=== PATIENT | male | born 1955 | race Caucasian/White ===

== ENCOUNTER 2018-06-01 17:09 | Observation (INO) | payer OTHER ==
[2018-06-01] MEDS ORDERED: LR 1,000 ML IV ONE (17:17)
[2018-06-01] MEDS ORDERED: BACITRACIN ZINC 14.2 GM OINTTUBE TP ONE (18:04)
[2018-06-01] MEDS ORDERED: EPINEPHrine 1 MG/ML INJ ONE (18:05)
[2018-06-01] MEDS ORDERED: LIDOCAINE 1% 300 MG/30 ML SDV ONE (18:05)
--- NOTE | 2018-06-01 18:07 | PDANEPAE ---
ANE History of Present Illness nasal carcinoma/flap reconstruction ANE Past Medical History - Cardiovascular History Hx Hypertension: No Hx Arrhythmias: No Hx Chest Pain: No Hx Coronary Artery / Peripheral Vascular Disease: No Hx CHF / Valvular Disease: No Hx Palpitations: No - Pulmonary History Hx COPD: No Hx Asthma/Reactive Airway Disease: No Hx Recent Upper Respiratory Infection: No Hx Oxygen in Use at Home: No Hx Sleep Apnea: No - Neurologic History Hx Cerebrovascular Accident: No Hx Seizures: No Hx Dementia: No Neurologic History Comment: "I get hot & almost pass out." - Endocrine History Hx Diabetes: No - Renal History Hx Renal Disorders: No - Liver History Hx Hepatic Disorders: No - Neurological & Psychiatric Hx Hx Neurological and Psychiatric Disorders: No - Cancer History Hx Cancer: Yes Cancer History Comment: Basal cell x 3 on nose - Congenital Disorder History Hx Congenital Disorders: No - GI History Hx Gastrointestinal Disorders: No Gastrointestinal History Comment: Barretts esophagus - Other Health History Other Health History: Phx Anemia - Chronic Pain History Chronic Pain: No - Surgical History Prior Surgeries: left knee scope. 2 nose sx. plastic surgery. EGD/Colon. Catract bilateral ANE Review of Systems Review of systems is: negative Review of Systems: - Exercise capacity METS (RN): 4 METS ANE Patient History - Home Medications Home medications: home medication list seen and reviewed - NPO status NPO Since - Liquids (Date): 06/01/18 NPO Since - Liquids (Time): 12:00 NPO Since - Solids (Date): 06/01/18 NPO Since - Solids (Time): 09:00 - Anes Hx Anes Hx: no prior problems - Smoking Hx Smoking Status: Former smoker - Family Anes Hx Family Hx Anesthesia Complications: none. ANE Labs/Vital Signs - Vital Signs Blood Pressure: 120/66 Heart Rate: 60 Respiratory Rate: 18 O2 Sat (%): 97 Height: 177.8 cm Weight: 70.307 kg ANE Physical Exam - Airway Neck exam: FROM Mallampati Score: Class 1 Mouth exam: dentures - Pulmonary Pulmonary: no respiratory distress - Cardiovascular Cardiovascular: regular rate and rhythym - ASA Status ASA Status: II ANE Anesthesia Plan Anesthesia Plan: general endotracheal anesthesia
[2018-06-01] MEDS ORDERED: fentaNYL 100 MCG/2 ML INJ ONE ×3 (18:09→22:02)
[2018-06-01] MEDS ORDERED: PROPOFOL 200 MG/20 ML VIAL ONE ×2 (18:10→22:56)
[2018-06-01] MEDS ORDERED: ROCURONIUM 50 MG/5 ML VIAL ONE ×2 (18:12→19:15)
[2018-06-01] MEDS ORDERED: LIDOCAINE 2% 5 ML SDV ONE (18:13)
[2018-06-01] MEDS ORDERED: MIDAZOLAM 2 MG/2 ML VIAL IVP ONE (18:17)
[2018-06-01] MEDS ORDERED: CEFAZOLIN 2 GM/DEXTROSE/100 ML BAG IV ONE (18:25)
[2018-06-01] MEDS ORDERED: SUCCINYLCHOLINE CHLORIDE 200 MG/10 ML SYR IVP ONE (18:43)
[2018-06-01] MEDS ORDERED: DEXAMETHASONE 4 MG/ML VIAL ONE ×2 (18:51)
[2018-06-01] MEDS ORDERED: PHENYLEPHRINE HCL 100 MCG/ML SYR ONE (19:01)
--- NOTE | 2018-06-01 19:02 | POSTANESTH ---
Post Anesthetic Evaluation Cardiovascular Status: Normal, Stable Respiratory Status: Normal, Stable Level of Consciousness/Mental Status: Can Participate in Eval, Mildly Sleepy, Arousable Pain Control: Adequate, Prn Tx Ordered Nausea/Vomiting Control: Adequate, Prn Tx Ordered Complications Possibly Related to Anesthesia: None Noted
[2018-06-01] MEDS ORDERED: HYDROmorphONE/DILAUDID 2 MG/ML INJ ONE (19:22)
--- NOTE | 2018-06-01 19:44 | GHP ---
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 He has a history of basal cell cancer on the end of his nose that underwent resection 2 times prior. They on Wednesday attempted nose surgery, and at that time they were not able to get clear margins, and so he presents to us today for further nasal carcinoma excision and recons truction. ALLERGIES: No known drug allergies. PAST MEDICAL HISTORY: Significant for basal cell carcinoma, left knee scope, and [place]. FAMILY HISTORY: Noncontributory. PHYSICAL EXAMINATION: GENERAL: The patient is alert and orientated, in no acute distress. EARS: C lear. NOSE: Patient with a significant nasal defect of his nose with exposed cartilage. OROPHARYNX : Clear. NECK: Supple. HEART: Regular rate and rhythm. LUNGS: Clear to auscultation. ASSESSMENT/PLAN: Patient with a basal cell carcinoma, who underwent incomplete Mohs surgery 2 days a go. Our plan is for further excision of the carcinoma, and then we will proceed with a forehead flap with partial rhinectomy. Risks of surgery were discussed with the patient including bleeding, infec tion, failure of the flap, facial nerve paralysis, and paresthesias. The patient signed consent. /[id number]/MODL
[2018-06-01] MEDS ORDERED: NALOXONE HCL 0.4 MG/ML INJ IVP PRN (22:19)
[2018-06-01] MEDS ORDERED: LR 500 ML IV PRN (22:19)
[2018-06-01] MEDS ORDERED: oxyCODONE IR 5 MG TAB PO PRN (22:19)
[2018-06-01] MEDS ORDERED: ONDANSETRON 4 MG/2 ML VIAL IVP PRN (22:19)
[2018-06-01] MEDS ORDERED: ACETAMINOPHEN 500 MG TAB PO PRN (22:19)
[2018-06-01] MEDS ORDERED: ALBUTEROL 3 ML DEYVIAL IH PRN (22:19)
[2018-06-01] MEDS ORDERED: PROMETHAZINE HCL 25 MG/ML INJ IVP PRN (22:19)
[2018-06-01] MEDS ORDERED: HYDROmorphONE/DILAUDID 2 MG/ML INJ IVP PRN (22:19)
[2018-06-01] MEDS ORDERED: fentaNYL 100 MCG/2 ML INJ IVP PRN (22:19)
[2018-06-01] MEDS ORDERED: METOCLOPRAMIDE 10 MG/2 ML VIAL IVP PRN (22:19)
[2018-06-01] MEDS ORDERED: HYDROCODONE/APAP 5/325 TAB PO PRN (22:19)
[2018-06-01] MEDS ORDERED: SUGAMMADEX SODIUM 200 MG/2 ML VIAL IVP ONE (22:23)
[2018-06-02] MEDS ORDERED: ONDANSETRON DISINTEGRATING 4 MG TAB PO PRN (00:05)
[2018-06-02] MEDS ORDERED: NS 2,000 ML IV SCH (00:30)
[2018-06-02] MEDS: OXYCODONE/APAP 5/325 TAB PO PRN ×5 (00:33→20:27)
--- NOTE | 2018-06-02 10:29 | ASMTCMCOM ---
CM Note CM Note Notes: Pt is a 62 y/o man admitted for malignant neoplasm of skin of nose. Pt will most likely d/c independent when medically stable. No therapies ordered at this time. CM available for changes. Plan: Independent Date Signed: 06/02/2018 10:28 AM Electronically Signed By:IMANI Sanchez
--- NOTE | 2018-06-02 10:40 | SOAPPROG ---
SOAP Progress Note Assessment/Plan: Assessment: Patient doing well. Incision cleaned with peroxide. We will keep him another night. Continue IV abx. Will add saline nsasl spray BID. Continue with ointment. Plan to round again this afternoon and d/c tomorrow. Patient was evaluated by Dr. Clarke Plan: 06/02/18 10:37 Objective: Vital Signs Temp Pulse Resp BP Pulse Ox 37.1 C 74 16 103/60 97 06/02/18 03:27 06/02/18 03:27 06/02/18 03:27 06/02/18 03:27 06/02/18 03:27 06/01/18 06/02/18 06/03/18 05:59 05:59 05:59 Intake Total 1950 Output Total 100 Balance 1850 ICD10 Worksheet Patient Problems: Problems Problem Status Onset Basal cell carcinoma of nose Acute - ICD10 Problem Qualifiers (1) Basal cell carcinoma of nose
[2018-06-02] MEDS ORDERED: D5W 1/2 NS 1,000 ML IV SCH (10:45)
[2018-06-02] MEDS: BACITRACIN OINTMENT 1 PACKET TP SCH ×3 (11:22→20:29)
[2018-06-02] MEDS: SODIUM CL NASAL 45 ML BTL EACHNARE SCH ×2 (11:38→20:28)
--- NOTE | 2018-06-02 14:30 | SOAPPROG ---
SOAP Progress Note Assessment/Plan: Assessment: Patient doing well. Incision cleaned with peroxide. Continue with ointment, saline spray Plan to d/c tomorrow. Plan: 06/02/18 10:37 06/02/18 14:30 Objective: Vital Signs Temp Pulse Resp BP Pulse Ox 37.1 C 73 18 108/59 L 96 06/02/18 12:00 06/02/18 12:00 06/02/18 12:00 06/02/18 12:00 06/02/18 12:00 06/01/18 06/02/18 06/03/18 05:59 05:59 05:59 Intake Total 1950 Output Total 100 Balance 1850 ICD10 Worksheet Patient Problems: Problems Problem Status Onset Basal cell carcinoma of nose Acute - ICD10 Problem Qualifiers (1) Basal cell carcinoma of nose
[2018-06-03] MEDS: OXYCODONE/APAP 5/325 TAB PO PRN ×2 (05:21→09:28)
[2018-06-03 08:35] VITALS: BP 125/59
[2018-06-03] MEDS: BACITRACIN OINTMENT 1 PACKET TP SCH (08:58)
[2018-06-03] MEDS: SODIUM CL NASAL 45 ML BTL EACHNARE SCH (09:00)
--- NOTE | 2018-06-03 11:12 | PDDCSUM ---
Discharge Summary Discharge Summary: 62 year old male with basal cell carcinoma of nose s/p reconstruction 06/01/[address] Clarke. He is doing well. Incision clean/dry/intact. AFVSS Discussed post op care. He is to apply bacitracin TID to incision and warm compresses TID. Follow up in clinic 06/08/18 Patient was evaluated by Dr. Clarke.
--- NOTE | 2018-06-03 12:12 | GOP ---
DATE OF OPERATION: 06/01/2018 SURGEON: Shaun Clarke MD LODGE OFFICER: Rebecca Gamez PA-C. ANESTHESIA: General. PREOPERATIVE DIAGNOSIS: Nasal carcinoma. POSTOPERATIVE DIAGNOSIS: Nasal carcinoma. PROCEDURE PERFORMED: Partial rhinectomy and multiple flap reconstructions including cartilage grafti ng for a rhinectomy defect. FINDINGS: INDICATIONS: Nasal carcinoma. DESCRIPTION OF PROCEDURE: The patient is a 62-year-old male brought to the operating room where gene ral anesthesia is induced and endotracheal intubation is performed. The nose and face are cleaned st erilely and prepped and draped in a sterile fashion. Procedure is begun by excising areas of cancer demarcation along the mucosal surface internally extending toward the inferior turbinate on the right lateral nasal sidewall underneath the lateral alar region. This area is excised primarily and then 2 margins taken from this area for frozen section analysis, which the margins come back negative for carcinoma on frozen section analysis. He has also cutaneous involvement noted at the right lateral s idewall, and this area is cut back for approximately 5 mm and then new margins taken in 2 locations a nona this area, which are sent for frozen section analysis, for which both come back negative for any evidence of carcinoma. At this point, the patient has flaps planned, and we perform a mucosal advan cement flap internally, bringing mucosa off the septum and floor of the nose on the right side to hel p cover the mucosal defect along the vestibule and lateral wall and crural margin. Once this flap is raised, it is rotated into place. A Dorrington incision is made in the patient's septum, and a septopl asty-type procedure approach performed to raise submucoperichondrial flaps to help harvest and use se ptal cartilage as alar grafting. An appropriate amount of septal cartilage is taken to form alar cart ilage graft replacement. The [place] incision is then closed primarily with 4-0 chromic suture in a quilting stitch fashion. The patient then has the cartilage fashioned into the alar graft and sewn i n place with 4-0 Prolene suture in multiple interrupted [id number] suture fashion. The vest ibular lining is then brought up underneath the cartilage and tacked to the cartilage using a 4-0 Mon ocryl suture in a couple spots. The patient then has multiple cutaneous flaps performed starting wit h a large dorsal nasal flap rotation, which will come off the left side of his cheek and face and mid line forehead, which will rotate to cover the bulk of the nasal defect pedicle on the right nasal andi ewall. This flap is elevated in a deep subcutaneous and submuscular plane and rotated into place to get coverage. The defect from the previously-done Mohs procedure extended from the inferior aspect o f the columella all the way up to the bony cartilaginous junction of the nose dorsally with complete degloving of the right side of his nose and moderate degloving of the left side of his nose with some of the alar cutaneous margin retained on the left side with extension of the excision all the way do wn to the alar base on the right side. The flap rotates into place to cover the left middle and a po rtion of the right cutaneous defect and is sewn in place with 4-0 Monocryl and 5-0 Prolene sutures in cluding suturing to the neovestibular lining on the right as well as to the vestibular lining nostril margin on the left. The patient then has a nasolabial island advancement flap performed from the al ar base superiorly with a V-to-Y closure performed to help move the cutaneous flap over the still exp osed alar margin and lateral alar base defect on the right side. This flap is advanced and rotated i nto place and sewn in place with 4-0 Prolene and 4-0 Monocryl suture as well to the vestibular lining . The patient then had his nose cleaned, and a defect along the lateral nasal sidewall still noted, and a small triangular piece of dorsal glabellar skin, which would be extraneous because of the way t he flap rotated, was then excised from the flap and sewn into this defect as a free skin graft on the lateral left nasal sidewall using a 4-0 Prolene suture. The patient then has the wound cleaned agai n, and once all of the incisions and donor sites are closed, the patient has the wound dressed with b acitracin. He is awakened and extubated uneventfully, brought to the recovery room in stable conditi on where he is expected to do well postoperatively. The patient tolerated the procedure well. HISTORY: 62-year-old gentleman who underwent an incomplete Mohs surgical procedure by outside dermat ologist with retained positive margins in 2 locations. He has a significant surgical defect already in place prior to starting our operative procedure, and the plan would be for continued excision of t he carcinoma with reconstruction with flap and cartilage grafts. Risks, benefits, indications, optio ns, and possible complications, limitations of this procedure were discussed at length with the patie nt and his in the office as well as in the preoperative holding area. Prior to signing informed consent, they were given a chance to have their questions answered. /[id number]/MODL
== END 2018-06-03 11:27 | disposition home or self-care (01) ==
LOC: FSGY 17:09 → F1N 23:53 → F3E 06-02 00:25
PROVIDERS: ADMIT Otolaryngology; ATTEND Otolaryngology
DX: C44.311 Basal cell carcinoma of skin of nose (principal); Z23 Encounter for immunization
CPT/HCPCS: 14060; 20912; 30150; 90471; G0378; G0008; J0171; J0330; J0690; J1100; J1170; J2250; J2370; J2704; J3010